=== PATIENT | female | born 1975 | race Caucasian/White ===

== ENCOUNTER 2025-07-30 12:46 | Emergency (ER) | payer BC, SELFPAY ==
[2025-07-30 12:48] VITALS: BP 138/94
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
[2025-07-30] MEDS: KEFLEX 500 MG PO (14:13)
[2025-07-30] MEDS: ADACEL 0.5 ML IM (14:13)
== END 2025-07-30 14:53 | disposition home or self-care (01) ==
LOC: EMR 12:46
PROVIDERS: EMERGENCY PHYSICIAN Emergency Medicine; FAMILY PHYSICIAN Family Medicine
DX: S71.112A Laceration without foreign body, left thigh, initial encounter (principal); I10 Essential (primary) hypertension; Z23 Encounter for immunization; W22.8XXA Striking against or struck by other objects, initial encounter; Y93.55 Activity, bike riding
CPT/HCPCS: 99283; 12032; 90471; 90715

== ENCOUNTER → 2025-08-18 12:29 | Outpatient (REF) | payer BC, SELFPAY | LOC: WOUND 12:29 | PROVIDERS: ATTENDING PHYSICIAN Surgery; FAMILY PHYSICIAN Family Medicine | DX: L97.122 Non-pressure chronic ulcer of left thigh with fat layer exposed (principal) | CPT/HCPCS: 11042; 99203 ==

== ENCOUNTER → 2025-08-21 13:08 | Outpatient (REF) | payer BC, SELFPAY | LOC: WOUND 13:08 | PROVIDERS: ATTENDING PHYSICIAN Surgery; FAMILY PHYSICIAN Family Medicine | DX: L97.122 Non-pressure chronic ulcer of left thigh with fat layer exposed (principal); L03.116 Cellulitis of left lower limb | CPT/HCPCS: 99213 ==

== ENCOUNTER → 2025-08-28 13:03 | Outpatient (REF) | payer BC, SELFPAY | LOC: WOUND 13:03 | PROVIDERS: ATTENDING PHYSICIAN Surgery; FAMILY PHYSICIAN Family Medicine | DX: L97.122 Non-pressure chronic ulcer of left thigh with fat layer exposed (principal) | CPT/HCPCS: 11042 ==

== ENCOUNTER → 2025-09-12 13:42 | Outpatient (REF) | payer BC, SELFPAY | LOC: WOUND 13:42 | PROVIDERS: ATTENDING PHYSICIAN Surgery; FAMILY PHYSICIAN Family Medicine | DX: L97.122 Non-pressure chronic ulcer of left thigh with fat layer exposed (principal) | CPT/HCPCS: 99212 ==